=== PATIENT | female | born 1985 | race Caucasian/White ===

== ENCOUNTER 2019-05-24 19:37 | Emergency (ER) | payer MEDICAID ==
[2019-05-24] MEDS ORDERED: ONDANSETRON HCL IV 4 MG/2 ML VIAL IVP ONE (19:50)
[2019-05-24] MEDS ORDERED: MORPHINE SULFATE 5 MG/ML VIAL IVP ONE (19:50)
--- NOTE | 2019-05-24 19:54 | Emergency Department Record ---
History of Present Illness - General Chief Complaint: Abdominal Pain Stated Complaint: ABD PAIN Time Seen by Provider: 05/24/19 19:41 Source: Patient Mode of Arrival: Ambulatory Limitations: No limitations - History of Present Illness Initial Comments: 34 yo female presents to ED for evaluation of RUQ pain symptoms that began approximately 1 hour prior to arrival, sudden onset. Patient denies fevers, chills, nausea, or vomiting symptoms. Patient denies urinary symptoms, denies flank pain symptoms as well. Patient denies previous abdominal surgery, and denies health problems at her baseline. Patient denies a history of symptoms previously. MD Complaint: Abdominal pain Onset/Timin -: Hour(s) Location: RUQ Migration to: No migration Severity: Severe Severity scale (1-10): 9 Quality: Aching Consistency: Constant Improves With: Nothing Worsens With: Nothing Associated Symptoms: Denies other symptoms - Related Data Patient : No Review of Systems Constitutional: Denies: Chills, Fever, Malaise, Night sweats Eyes: Denies: Eye discharge, Eye pain ENT: Denies: Congestion, Ear pain, Epistaxis Respiratory: Denies: Cough, Dyspnea Cardiovascular: Denies: Chest pain, Dyspnea on exertion Endocrine: Denies: Fatigue, Heat or cold intolerance Gastrointestinal: Reports: Abdominal pain. Denies: Constipation, Nausea, Vomiting Genitourinary: Denies: Incontinence, Retention Musculoskeletal: Denies: Arthralgia, Back pain Skin: Denies: Bruising, Change in color Neurological: Denies: Abnormal gait, Confusion, Headache, Seizure Psychiatric: Denies: Anxiety Hematological/Lymphatic: Denies: Anemia, Blood Clots Physical Exam - General General Appearance: Alert, Oriented x3, Cooperative, No acute distress Limitations: No limitations - Head Head exam: Atraumatic, Normocephalic, Normal inspection Head exam detail: negative: Abrasion, Contusion, Rose's sign, General tenderness, Hematoma, Laceration - Eye Eye exam: Normal appearance. negative: Conjunctival injection, Periorbital swelling, Periorbital tenderness, Scleral icterus - ENT Ear exam: negative: Auricular hematoma, Auricular trauma Nasal Exam: negative: Active bleeding, Discharge, Dried blood, Foreign body Mouth exam: negative: Drooling, Laceration, Muffled voice, Tongue elevation - Neck Neck exam: Normal inspection. negative: Meningismus, Tenderness - Respiratory Respiratory exam: Normal lung sounds bilaterally. negative: Rales, Respiratory distress, Rhonchi, Stridor - Cardiovascular Cardiovascular Exam: Regular rate, Normal rhythm, Normal heart sounds - GI/Abdominal GI/Abdominal exam: Soft, Tenderness (TTP RUQ on examination, no rebound, no guar ding symptoms.). negative: Rebound, Rigid - Rectal Rectal exam: Deferred - exam: Deferred - Extremities Extremities exam: Normal inspection. negative: Pedal edema, Tenderness - Back Back exam: Denies: CVA tenderness (R), CVA tenderness (L) - Neurological Neurological exam: Alert, Normal gait, Oriented X3 - Psychiatric Psychiatric exam: Normal affect, Normal mood - Skin Skin exam: Normal color. negative: Abrasion Type of lesion: negative: abrasion Course - Reevaluation(s) Reevaluation #1: 05/24/19 20:44 Laboratory studies were reviewed and appear grossly unremarkable for an acute process. Patient is back from CT imaging, updated on results thus far. Patient also reports that her pain symptoms are greatly improved (/ currently). CT interpretation is pending at this time. Reevaluation #2: 05/24/19 21:08 CT Abdomen and Pelvis: FF pelvis Hiatal Hernia Appendix appears normal Patient was updated on all results, history, laboratory results, and CT imaging results favor likely rupture of an ovarian cyst. Patient verbalizes understanding of all instructions, and the patient appears stable for discharge at this time. Medical Decision Making - Lab Data Result diagrams: 05/24/19 20:10 05/24/19 20:10 Disposition Disposition: Discharge Clinical Impression: Abdominal pain Qualifiers: Abdominal location: right lower quadrant Qualified Code(s): R10.31 - Right lower quadrant pain Disposition: Home, Self-Care Condition: (2) Stable Instructions: Abdominal Pain (ED) Additional Instructions: Return to ED if your symptoms worsen or if you have any concerns. Motrin 600 mg as directed. Follow-up with your family doctor in 3-5 days as directed. Forms: Patient Portal Access Time of Disposition: 21:10 Quality - Quality Measures Quality Measures: N/A - Blood Pressure Screening Does Patient Have Any of the Following: No Blood Pressure Classification: Pre-Hypertensive BP Reading Systolic Measurement: 121 Diastolic Measurement: 84 Screening for High Blood Pressure: < Pre-Hypertensive BP, F/U Documented > [G8950] Pre-Hypertensive Follow-up Interventions: Referral to alternative/primary care naomy burris.
[2019-05-24] MEDS ORDERED: 0.9 % SODIUM CHLORIDE 1000ML 1,000 ML IV SCH (20:00)
[2019-05-24 20:23] LABS: BASO % 0.4 % (0-6); HEMATOCRIT 42.9 % (35.0-47.0); HEMOGLOBIN 13.7 gm/dl (11.6-16.0); LYMPH % 22.4 % (16-45); MEAN CELL VOLUME 88.1 fl (81-97); MEAN CORPUSCULAR HEMOGLOBIN 28.1 pg (27-33); MEAN CORPUSCULAR HGB CONC 31.9 g/dl (32-36); MONO % 6.2 % (0-9); PLATELET COUNT 256 K/uL (130-400); RED BLOOD COUNT 4.87 M/uL (3.80-5.40); RED CELL DISTRIBUTION WIDTH 13.4 % (11.5-14.5); WHITE BLOOD COUNT W/O DIFF 11.3 K/uL (4.2-12.2)
[2019-05-24 20:24] LABS: URINE APPEARANCE CLEAR; URINE BILIRUBIN NEGATIVE (NEGATIVE); URINE BLOOD TRACE-I (NEGATIVE); URINE COLOR YELLOW; URINE GLUCOSE (UA) NEGATIVE (NEGATIVE); URINE KETONE TRACE (NEGATIVE); URINE LEUKOCYTE ESTERASE NEGATIVE (NEGATIVE); URINE NITRITE NEGATIVE (NEGATIVE); URINE PROTEIN NEGATIVE (NEGATIVE); URINE UROBILINOGEN 0.2 E.U./dL (0.20 - 1.00)
[2019-05-24 20:27] LABS: HCG,QUALITATIVE URINE NEGATIVE (NEGATIVE)
[2019-05-24 20:32] LABS: URINE BACTERIA FEW; URINE EPITHELIAL CELLS 0 - 2 (FEW); URINE RBC 0 - 2 (NONE SEEN); URINE WBC 0 - 2 (0-2/hpf)
[2019-05-24 20:36] LABS: BILIRUBIN,TOTAL < 0.20 mg/dL (0.2-1.0); BLOOD UREA NITROGEN 13 mg/dL (6-20); CREATININE 0.7 mg/dL (0.5-0.9); EST GLOMERULAR FILTRATION RATE > 60 mL/min; LIPASE 29 U/L (13-60); TOTAL PROTEIN 6.8 g/dL (6.6-8.7)
[2019-05-24 20:38] LABS: GLUCOSE,RANDOM 97 mg/dL (74-109)
[2019-05-24 20:41] LABS: ALB/GLOB RATIO 1.6 (1.1-1.8); ALBUMIN 4.2 g/dL (4.0-5.0); ALKALINE PHOSPHATASE 74 U/L (35-104); ALT/SGPT 12 U/L (<33); AST/SGOT 16 U/L (10.0-35.0)
--- NOTE | 2019-05-24 21:04 | CT SCAN REPORT ---
EXAMINATION: CT Abdomen and Pelvis with Contrast EXAM DATE: 05/24/2019 8:56 PM TECHNIQUE: Spiral CT images were obtained from the lung bases to the ischial tuberosities after inje ction of intravenous contrast. Coronal and sagittal 2-D reconstructions were made from source images . IV Contrast: The type and amount of contrast are recorded in the medical record. INDICATION: RUQ pain today COMPARISON: None. FINDINGS: Abdomen: The liver, spleen, pancreas, adrenals, and kidneys are normal. Suboptimal evaluation of bowel due to nondistention and lack of oral contrast. No bowel dilation. Hiatal hernia is noted. Pelvis: The pelvic organs appear unremarkable. Free fluid is present. No free intraperitoneal air. No inflamm atory change. The appendix is normal. No bowel dilation. IMPRESSION: 1. Ascites. 2. Hiatal hernia. Dictated by: Chico Cardona MD on 05/24/2019 8:55 PM. .
== END 2019-05-24 21:33 | disposition home or self-care (01) ==
LOC: ER 19:37
DX: R10.31 Right lower quadrant pain (principal)
CPT/HCPCS: 99284 ×2; 96374; 96375; 83690; 85025; 80053; 81001; 81025; 74177; Q9967; J2405